=== PATIENT | male | born 1985 | race Caucasian/White ===

== ENCOUNTER 2025-01-11 13:39 | Emergency (ER) | payer SELFPAY ==
[2025-01-11 13:44] VITALS: BP 171/96
--- NOTE | 2025-01-11 15:23 | ED.MUSCINJ ---
HPI-Injury
General
Chief Complaint: Musculo-Skeletal Complaint
Source: patient and records
Exam Limitations: none
Time Seen by Provider: 01/11/25 15:12
Nursing documentation reviewed up to this point in time: agreed with
History of Present Illness-Injury
Is this injury a work related problem?: No
Is pt an associate of [facility]/[place]?: No
Initial Injury comments:
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 Vang
unsure of his last tetanus
Past History
Past History
ED Past Medical History: None
ED Past Surgical History: Orthopedic
Social History
Tobacco: Non-smoker
Alcohol: None
Drug: None
Personal:
Living: with family
Employment: Employed
Review of Systems
Review of Systems
All Other Systems: Not applicable
Constitutional: Denies fever
Musculoskeletal: Reports joint swelling and other (Difficulty extending his thumb)
Phy Exam
Physical Exam
Physical Exam:
Physical Exam
General: no apparent distress, not acutely ill
Neck: No jaundice
Lungs: no acute respiratory distress.
Neuro: alert and oriented. no focal neurological deficits
Skin: no rash
Psychiatric: well kept. interactive and cooperative
Extremities: Left hand swelling with decreased active extension of the thumb IP 2 healed superficial laceration normal capillary
Injury Course
Orders/Labs/Results
Orders:
Orders
01/11/25 15:18
Cephalexin Monohydrate [Keflex] 500 mg PO NOW STA
Tetanus/Diphth/Acelpertussis [Adacel] 0.5 ml IM .ONCE ONE
Hand, Left 3 View [CR Hand - Left Min 3 Views] Urgent
Comment:
Reason For Exam: lac
MDM/Problems Addressed
Differential Diagnosis Includes:
Tendon injury, infection, fracture prior injury
MDM/Problems Addressed:
Hand injury
*Radiology
Radiology exam reviewed: preliminary read by ED provider
*Pulse Oximetry
Patient hypoxic: no
*Critical Care Note
Total Time (30-74mins, 75-104mins- exclusive of procedures): Not Applicable
Update Note
Update Note:
Update suspect a tendon injury history of the same unclear if it is exactly related to the prior injury not will update his tetanus start him on antibiotics wound care check x-ray refer back to his original treating surgeon
ED Attending Note
-
Portions of this chart may have been created with voice recognition software.� Occasional wrong word or��sound alike� substitutions may have occurred due to the inherent limitations of voice recognition software.
Discharge Plan
Departure
Patient Disposition: Home (Routine Discharge)
Date of Disposition: 01/11/25
Time of Disposition: 15:58
Patient with high blood pressure during this ER visit?: No
Condition: Good
Covid-19: Not Applicable
Discharge Problem:
Injury of tendon of hand
Instructions: Tendon Laceration
Prescriptions:
New
cephalexin 500 mg capsule
500 mg PO Q8H 7 Days Qty: 21 0RF
No Action
ibuprofen 600 MG tablet
600 mg PO Q6HPRN PRN (Reason: pain) Qty: 20 0RF
Referrals:
Jack Calero DO [Family Provider] -
Kirby Vang MD [Active] - Next open appointment
Activity Restrictions/Additional Instructions:
Wash your wound with soap and water keep it covered, antibiotics as prescribed follow-up with Dr. Vang your prior hand surgeon
Return to the ER if any signs of infection
Interventions
Interventions:
*Risk Screen - Suicide Last Done: 01/11/25 13:47
*Neglect/Abuse Screening Last Done: 01/11/25 13:47
*Nursing Disposition Last Done: 01/11/25 16:00
Discharge Date and Time
Discharge Date/Time: 01/11/25 16:00
Print Language: DOMINICAN
[2025-01-11] MEDS: ADACEL 0.5 ML IM (15:35)
[2025-01-11] MEDS: KEFLEX 500 MG PO (15:35)
== END 2025-01-11 16:00 | disposition home or self-care (01) ==
LOC: EMR 13:39
PROVIDERS: EMERGENCY PHYSICIAN Emergency Medicine; FAMILY PHYSICIAN Family Medicine
DX: S66.909 Unspecified injury of unspecified muscle, fascia and tendon at wrist and hand level, unspecified hand (principal); W45.8XXA Other foreign body or object entering through skin, initial encounter; Z23 Encounter for immunization
CPT/HCPCS: 99283; 90471; 73130; 90715